=== PATIENT | female | born 1955 ===

== ENCOUNTER 2021-03-06 07:56 | Outpatient (CLI) | payer OTHER | END 2021-03-06 09:53 | disposition home or self-care (01) | LOC: SONOGRAMA 07:56 | PROVIDERS: ATTEND Pathology Anatomic Pathology & Clinical Pathology | DX: E04.8 Other specified nontoxic goiter (principal); D34 Benign neoplasm of thyroid gland ==

== ENCOUNTER 2023-05-09 11:09 | Outpatient (CLI) | payer OTHER | END 2023-05-09 11:11 | disposition home or self-care (01) | LOC: SONOGRAMA 11:09 | PROVIDERS: ATTEND Pathology Anatomic Pathology & Clinical Pathology | DX: D44.0 Neoplasm of uncertain behavior of thyroid gland (principal); E04.2 Nontoxic multinodular goiter ==

== ENCOUNTER 2023-11-07 07:57 | Outpatient (CLI) | payer OTHER | END 2023-11-07 07:59 | disposition home or self-care (01) | LOC: SONOGRAMA 07:57 | PROVIDERS: ATTEND Pathology Anatomic Pathology & Clinical Pathology | DX: D34 Benign neoplasm of thyroid gland (principal); E07.89 Other specified disorders of thyroid; E04.2 Nontoxic multinodular goiter ==